=== PATIENT | male | born 1970 | race Caucasian/White ===

== ENCOUNTER → 2024-10-17 11:15 | Outpatient (BNV) | payer BC, SELFPAY | PROVIDERS: Visit Provider Psychiatry & Neurology Psychiatry | DX: F33.9 Major depressive disorder, recurrent, unspecified (principal); F41.1 Generalized anxiety disorder; F10.10 Alcohol abuse, uncomplicated | CPT/HCPCS: 90792 ==

== ENCOUNTER 2024-10-25 13:23 | Outpatient (REF) | payer BC, SELFPAY ==
[2024-10-25 13:53] LABS: Amphetamine Screen Urine POSITIVE (Not Detect); Barbiturates, Urine Not Detected (Not Detect); Benzodiazepines Screen Urine Not Detected (Not Detect); Buprenorphine Scr Not Detected (Not Detect); Cannabinoid Screen Urine POSITIVE (Not Detect); Cocaine Screen Urine Not Detected (Not Detect); Fentanyl, urine Not Detected (Not Detect); Methadone Screen, Urine Not Detected (Not Detect); Opiate Screen Urine Not Detected (Not Detect); Oxycodone Screen Urine Not Detected (Not Detect); Phencyclidine Screen Urine Not Detected (Not Detect)
== END 2024-10-25 13:24 | disposition home or self-care (01) ==
LOC: HO.LNP 13:23
PROVIDERS: Visit Provider Psychiatry & Neurology Psychiatry
DX: F10.90 Alcohol use, unspecified, uncomplicated (principal); F33.1 Major depressive disorder, recurrent, moderate; F41.1 Generalized anxiety disorder
CPT/HCPCS: 80307

== ENCOUNTER 2024-10-29 11:15 | Outpatient (RCR) | payer BC, SELFPAY ==
[2024-10-16 11:01] VITALS: BP 110/72; PULSE 80; TEMP 37.1; BMI 26.2
--- NOTE | 2024-10-16 12:59 | P.HPPSP_ITS ---
HPI Date of Service: 10/16/24 Chief Complaint: depression Sources of Information: patient interviewed, chart reviewed and crisis/core team assessment reviewed HPI Narrative: This is the 1st admission for this employed 53-year-old male, who was referred to PHP by his psychiatrist of 12 years. 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 He notes having twin daughters who have genetic disorders that render them cognitively and functionally im paired. He himself is starting to buckle under his many responsibilities and is causing considerable cognitive and functional impairment both at home and work, feeling paralyzed by stress and not being able to keep up with his home and work obligations. ?I can not multi task. Falling behind on my kids. I need a break I am exhausted.? He reports that his work place has been very supportive with time off and is currently on FMLA through his psych provider. Past Psychiatric History: No history of IPLOC, PHP, rule respite or detox admissions SA: none SIB: none Aggression: denies Psych provider: Mx Del[facility] Therapist: Krystal Ross [facility] Past medication trials: CURRENT MEDICATIONS: Venlafaxine ER 225 mg daily Adderall XR 20 mg daily in the morning [facility] Medical History (Updated 10/17/24 @ 22:56 by Kiara Topete MD) PVCs (premature ventricular contractions) Pneumothorax Social History: Lives at home with his partner and their 3 children (8 yo twins, 5 yo); also has a 23 yo daughter Raised in [place], father from work-related accidental injury when patient was 10 yo Graduated with Masters degree in Engineering Works as a service operations manager in [employer] Substance History: Alcohol use: social drinking, currently drinks about twice a week, has times he drinks more frequently and more heavily and admits to using alcohol as maladaptive coping Occasional cannabis use Diagnostics Vital Signs (24Hr): Vital Signs - 24 hr 10/16/24 11:01 Temperature 98.7 F Pulse Rate 80 Blood Pressure 110/72 BMI result Body Mass Index 26.2 Meds/Allergies Meds Home Medications ?Medication ?Instructions ?Recorded ?Confirmed ?Type dextroamphetamine-amphetamine ER 1 cap PO QAM 10/16/24 10/16/24 History 20 mg 24hr capsule,extend release lorazepam 1 mg tablet 1 mg PO DAILY PRN Anxiety 10/16/24 10/16/24 History venlafaxine 150 mg 150 mg PO DAILY 10/16/24 10/16/24 History capsule,extended release 24 hr venlafaxine 75 mg capsule,extended 75 mg PO DAILY 10/16/24 10/16/24 History release 24 hr Allergies Allergies Allergy/AdvReac Type Severity Reaction Status Date / Time No Known Allergies Allergy Verified 10/16/24 11:00 Mental Status Exam Mental Status Exam Narrative: Alert, oriented, in no acute distress. Calm, cooperative, engaged, well-related and articulate. No psychomotor agitation or neurovegetative retardation. Eye contact maintained. Mood depressed, anxious, affect subdued, variable, no lability or tearfulness. Speech normal. Thought process scattered, linear, coherent. Thought content related to stressors, executive dysfunction, feeling overwhelmed, some transient helplessness and hopelessness, denies SI, intention or plan. Denies any aggressive ideation. No paranoia or delusional content elicited. No evidence of psychosis. Insight and judgment intact. Assessment & Plan Assessment & Plan (1) MDD (major depressive disorder), recurrent episode: Status: Acute Code(s): F33.9 - Major depressive disorder, recurrent, unspecified (2) ERIKA (generalized anxiety disorder): Status: Acute Code(s): F41.1 - Generalized anxiety disorder (3) Alcohol use disorder, mild, abuse: Status: Acute Code(s): F10.10 - Alcohol abuse, uncomplicated Plan Admit to [facility] reviewed: afebrile, BP 110/72;?80 bpm start guanfacine ER 1 mg qd start Vyvanse 10 mg qd hold Adderall XR 20 mg continue venlafaxine 225 mg qd continue lorazepam 1 mg qd prn Routine lab work ordered as indicated EKG, routine for baseline QTc for medication considerations as indicated UDS as indicated [facility] reviewed Continue to monitor as per protocol Patient educated on: diagnosis, medication risk/benefits and substance abuse Informed Consent: understands Reason for continued partial hosp. stay Substantial Risk for: inability to function and med/psych decompensation Certification I certify that partial hospital treatment is medically necessary due to the symptoms and problems resulting from the patient's mental illness and the failure to treat the patient at the partial hospital level of care would likely result in the patient requiring inpatient psychiatric care which could not be prevented at a less intensive level of care. Time Spent With Patient Time: Total time managing care of this patient today _90___ minutes.
--- NOTE | 2024-10-16 14:14 | PC.ADMIT ---
Patient is a 53 year old male who was referred to [facility] by his psychiatrist secondary to increased sxs of depression and anxiety that is affecting his ability to work. He is currently taking a medical leave of absence from work to work on his mental health. He reports many stresses including his mother having dementia, his twin daughters who have special needs, work burnout, and not taking care of himself. He also reports at times his alcohol use increases as he uses it to cope with how he feels. He is currently drinking alcohol once a week drinking 2 beers. He did state at times he will drink up to 6 beers and describes himself as self medicating during those times. He denied any history of alcohol withdrawal and denied current alcohol withdrawal sxs. Patient reports difficulty concentrating while at work and will stare at the computer screen for hours. He reports he is not able to function like he used to. He reports he works from home. 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 Patient is alert and oriented x4. He is calm and cooperative. He presented with depressed mood and anxious affect. He denied SI, no HI. Patient was given a copy of his safety plan if needed. Patient's medications reconciled with patient and patient's pharmacy. He reports taking his medications as prescribed.
[2024-10-18 09:34] VITALS: BP 110/70; PULSE 76
[2024-10-18 12:16] VITALS: BP 104/78; PULSE 92
--- NOTE | 2024-10-19 15:01 | HO.PHP ---
Patient case was open and reviewed in treatment teams.
--- NOTE | 2024-10-29 20:22 | P.PNPSP_ITS ---
Subjective Subjective Date of Service: 10/29/24 Reason For Visit: depression Diagnostics Vital Signs (24Hr): BMI result Body Mass Index 26.2 Assessment & Plan Certification I certify that partial hospital treatment is medically necessary due to the symptoms and problems resulting from the patient's mental illness and the failure to treat the patient at the partial hospital level of care would likely result in the patient requiring inpatient psychiatric care which could not be prevented at a less intensive level of care. Total time managing care of this patient today ____ minutes. Discharge Plan Discharge Attending provider: Kiara Topete Medications: New lisdexamfetamine 10 mg capsule 10 mg PO QAM Qty: 14 0RF Rx Instructions: Partial Fill upon patient request. guanfacine 2 mg tablet extended release 24 hr 2 mg PO QAM Qty: 30 0RF Continued lorazepam 1 mg tablet 1 mg PO DAILY PRN (Reason: Anxiety) venlafaxine 75 mg capsule,extended release 24hr 75 mg PO DAILY venlafaxine 150 mg capsule,extended release 24hr 150 mg PO DAILY guanfacine 1 mg tablet extended release 24 hr 1 mg PO DAILY Qty: 30 0RF No Action dextroamphetamine-amphetamine 20 mg capsule,extended release 24hr 1 cap PO QAM Stand Alone Forms: Patient Portal Discharge page Print Language: Serbian
== END 2024-10-29 23:59 | disposition home or self-care (01) ==
LOC: HO.PHPA 11:15
PROVIDERS: Visit Provider Psychiatry & Neurology Psychiatry
DX: F33.9 Major depressive disorder, recurrent, unspecified (principal); F41.1 Generalized anxiety disorder; F10.10 Alcohol abuse, uncomplicated; Z79.899 Other long term (current) drug therapy
CPT/HCPCS: 90791; 90853